=== PATIENT | male | born 1955 | race American Indian/Alaskan Native ===

== ENCOUNTER 2017-03-18 08:33 | Outpatient (CLI) | payer MEDICARE ==
--- NOTE | 2017-03-18 15:26 | Magnetic Resonance Report ---
MR ABDOMEN WITHOUT CONTRAST History: disorder of adrenal gland Technique: Multiple T1 and T2-weighted images were obtained with and without fat suppression. Findings: The left adrenal gland is normal. A 1.8 cm nodule arising from the lateral limb of the right adrenal gland is unchanged since CT abdomen and pelvis with contrast dated 07/08/11. This probably represents an adrenal adenoma. Signal characteristics of the liver, biliary system, pancreas, spleen, kidneys and visualized bowel loops are within normal limits. 2 cm simple cyst in the mid right kidney is noted. The aorta is normal caliber. No evidence for adenopathy, acute inflammation or ascites. Impression: No change in the 1.8 cm right adrenal nodule since 2011. This probably represents an adrenal adenoma.
--- NOTE | 2017-03-19 08:21 | Ultrasound Report ---
FINAL REPORT EXAM: US SOFT TISSUE HEAD AND NECK HISTORY: THYROID NODULE COMPARISONS: None. FINDINGS: Grayscale and color Doppler ultrasound evaluation of the thyroid Thyroid gland is of normal size. No hyperemia suggested on color Doppler evaluation. The right thyroid lobe measures 4.8 x 1.7 x 1.6 cm. There is a hypoechoic solid-appearing nodule with internal flow on color Doppler in the anterior right mid thyroid measuring 1.2 x 0.7 x 0.9 cm. Additional anechoic benign cystic nodules measuring up to 4 millimeters are noted. The thyroid isthmus measures up to 3 millimeters in thickness. An anechoic benign-appearing cystic nodule is present at the left lateral aspect of the isthmus measuring approximately 5 x 2 millimeters. The left lobe of the thyroid measures 5.2 x 2.3 x 2.6 cm and also contains several small benign-appearing cystic nodules measuring up to 5 millimeters, as well as a dominant solid hypoechoic to isoechoic nodule is suggested hypoechoic halo and large amount of internal flow on color Doppler measuring 3 x 2 x 1.7 cm. IMPRESSION: Dominant left thyroid nodule measuring 3 x 2 x 1.7 cm is isoechoic to slightly hypoechoic to the remainder of the thyroid with significant internal flow on color Doppler and a peripheral hypoechoic halo suggested. This finding is amenable to percutaneous sampling. Anterior right mid thyroid solid-appearing nodule measures up to 1.2 cm and is also amenable to percutaneous sampling as warranted. Remaining nodules are predominantly cystic and benign-appearing in both thyroid lobes and measure 5 millimeters or less in greatest dimension.
== END 2017-03-18 08:34 | disposition home or self-care (01) ==
LOC: US 08:33
PROVIDERS: ATTEND Nurse Practitioner Family
DX: J43.9 Emphysema, unspecified (principal); E04.1 Nontoxic single thyroid nodule; E27.9 Disorder of adrenal gland, unspecified; N28.1 Cyst of kidney, acquired; E11.9 Type 2 diabetes mellitus without complications; E78.2 Mixed hyperlipidemia
CPT/HCPCS: 74181; 76536